=== PATIENT | male | born 1980 | race Caucasian/White ===

== ENCOUNTER 2022-12-09 15:29 | Outpatient (CLI) | payer OTHER, SELFPAY ==
[2022-12-09 19:08] LABS: Alanine Aminotransferase 46 U/L (6-50); Albumin Level 4.6 g/dL (3.5-5.1); Alkaline Phosphatase 59 U/L (38-126); Anion Gap 6 mmol/L (8-16); Aspartate Amino Transferase 47 U/L (17-59); Bilirubin,Total 0.7 mg/dL (0.2-1.3); Blood Urea Nitrogen 19 mg/dL (9-20); Calcium 8.7 mg/dL (8.4-10.2); Carbon Dioxide 27 mmol/L (22-30); Chloride 103 mmol/L (98-107); Cholesterol 229 mg/dL (0-200); Estimated Glomerular Filt Rate > 60; Glucose 80 mg/dL (65-110); HDL Direct 41 mg/dL; Potassium 4.3 mmol/L (3.4-5.0); Sodium 136 mmol/L (137-145); Triglycerides 153 mg/dL (<150)
[2022-12-09 19:22] LABS: LDL Cholesterol Direct 163 mg/dL
[2022-12-09 19:38] LABS: Basophils Percent Auto 0.5 % (0.2-1.2); Eosinophils Percent Auto 0.7 % (0-4.4); Hematocrit 45.9 % (42.0-52.0); Hemoglobin 15.6 g/dL (14.0-18.0); Immature Granulocyte Absolute 0.01 K/mm3 (0.00-0.031); Immature Granulocyte Percent A 0.2 % (0-0.5); Lymphocytes Absolute Auto 2.04 K/mm3 (0.9-3.2); Lymphocytes Percent Auto 37.2 % (18.3-44.2); Mean Corpuscular Hemoglobin 28.7 pg (26-34); Mean Corpuscular Volume 84.4 fl (80-100); Mean Platelet Volume 10.3 fl (7.4-10.4); Monocytes Absolute Auto 0.6 K/mm3 (0.1-0.6); Monocytes Percent Auto 10.9 % (2.6-8.5); Neutrophils Absolute Auto 2.8 K/mm3 (1.3-6.7); Neutrophils Percent Auto 50.5 % (45.5-73.1); Platelet Count Result 245 k/mm3 (150-375); Red Blood Count 5.44 M/mm3 (4.6-6.20); White Blood Count 5.5 K/mm3 (4.5-10.0)
== END 2022-12-09 15:30 | disposition home or self-care (01) ==
LOC: ANHGOSHLAB 15:30
PROVIDERS: PCP Family Medicine; Visit Provider Nurse Practitioner Family
DX: Z00.00 Encounter for general adult medical examination without abnormal findings (principal); R42 Dizziness and giddiness; R44.8 Other symptoms and signs involving general sensations and perceptions; Z13.220 Encounter for screening for lipoid disorders
CPT/HCPCS: 36415; 80053; 80061; 85025

== ENCOUNTER 2022-12-24 13:30 | Outpatient (CLI) | payer OTHER, SELFPAY ==
--- NOTE | ~2022-12-24 | CT_ITS ---
EXAMINATION: CT sinus wo con DATE: 12/24/2022 13:42 INDICATION: Sinus pressure. Left ear pain. TECHNIQUE: Computed tomography (CT) of the paranasal sinuses was performed without intravenous contra st. Iterative reconstruction technique was employed. The dose-length product was 431.77 mGy-cm. COMPARISON: Sinuses CT 04/03/2007 FINDINGS: The frontal sinuses are hypoplastic. There is mild mucosal thickening in right frontal sinu s and right anterior ethmoid sinus. The sphenoid and maxillary sinuses are clear. There are Bunny ce lls bilaterally. The ostiomeatal units are patent. There is mild mucosal thickening in the right infu ndibulum. There is mild rightward deviation of anterior nasal septum. There is leftward deviation of posterior nasal septum with a left lateral spur. IMPRESSION: 1. Mild mucosal thickening in the paranasal sinuses. Reviewed, dictated and finalized at location A.
== END 2022-12-24 13:31 ==
PROVIDERS: PCP Nurse Practitioner Family; Visit Provider Nurse Practitioner Family
DX: R44.8 Other symptoms and signs involving general sensations and perceptions (principal)
CPT/HCPCS: 70486

== ENCOUNTER → 2023-05-18 08:20 | Outpatient (CLI) | payer OTHER, SELFPAY ==
--- NOTE | ~2023-05-18 | XR_ITS ---
EXAMINATION: XR elbow RT 2V DATE: 05/18/2023 08:37 INDICATION: Right posterior elbow pain TECHNIQUE: Anteroposterior and lateral views of the right elbow were obtained. COMPARISON: None. FINDINGS: Alignment is normal. No fracture or joint effusion. Joint spaces are normal. No erosions or enthesoph ytes. Soft tissues are unremarkable. IMPRESSION: 1. Negative right elbow radiographs. Reviewed, dictated and finalized at location A.
== END ==
PROVIDERS: PCP Family Medicine; Visit Provider Nurse Practitioner Family
DX: M25.521 Pain in right elbow (principal)
CPT/HCPCS: 73070

== ENCOUNTER 2024-01-27 09:31 | Outpatient (CLI) | payer OTHER, SELFPAY ==
[2024-01-27 19:27] LABS: Thyroid Stimulating Hormone 0.719 uIU/mL (0.465-4.680)
[2024-01-27 20:03] LABS: Folic Acid 12.2 ng/mL (2.76->20)
== END 2024-01-27 09:32 | disposition home or self-care (01) ==
LOC: ANHGOSHLAB 09:32
PROVIDERS: PCP Family Medicine; Visit Provider Student in an Organized Health Care Education/Training Program
DX: R41.89 Other symptoms and signs involving cognitive functions and awareness (principal)
CPT/HCPCS: 36415; 82607; 82746; 84443

== ENCOUNTER 2024-01-31 14:40 | Outpatient (CLI) | payer OTHER, SELFPAY ==
--- NOTE | ~2024-01-31 | CT_ITS ---
EXAMINATION: CTA brain carotid DATE: 01/31/2024 15:50 INDICATION: Lightheadedness. Dizziness. Headache. Neck pain. TECHNIQUE: Computed tomographic angiography (CTA) of the head was performed without and with 100 mL O [id number] intravenous contrast. CTA of the neck was performed with intravenous contrast. Automated exposure control and iterative reconstruction technique were employed. The dose-length product was 1 738.20 mGy-cm. Maximum intensity projection and volume rendered 3D-reconstructions were created by georgi gallo technologist on a separate workstation. COMPARISON: Brain MRI 01/31/2024 FINDINGS: HEAD CTA: There is no intracranial hemorrhage, acute infarction, or abnormal intracranial mass lesion . The ventricles are normal in size. The orbits are normal. The paranasal sinuses are clear. The mast oid air cells are normal. The vertebral arteries are codominant. There is no significant stenosis of basilar artery or the posterior cerebral arteries. The posterior communicating arteries are normal. T here is no significant stenosis of the intracranial internal carotid arteries or anterior or middle c erebral arteries. Anterior communicating artery is normal. There is no aneurysm. NECK CTA: There are no pathologically enlarged lymph nodes. There is no significant stenosis of the v ertebral arteries. There is no visible plaque in the proximal internal carotid arteries. There is 0% stenosis of the proximal right internal carotid artery relative to normal distal artery lumen diamete r (NASCET criteria). There is 0% stenosis of the proximal left internal carotid artery relative to no rmal distal artery lumen diameter. There is mild thoracic spondylosis. IMPRESSION: 1. Normal brain. No aneurysm or significant intracranial arterial stenosis. 2. 0% stenosis of the proximal internal carotid arteries relative to normal distal artery lumen diame ters (NASCET criteria). Reviewed, dictated and finalized at location E. IMPRESSION: 1. Normal brain. No aneurysm or significant intracranial arterial stenosis. 2. 0% stenosis of the proximal internal carotid arteries relative to normal dis ashley artery lumen diameters (NASCET criteria).
--- NOTE | ~2024-01-31 | MR_ITS ---
EXAMINATION: MR brain/brain stem wo con DATE: 01/31/2024 15:15 INDICATION: Headache. Lightheadedness. Dizziness. TECHNIQUE: Magnetic resonance imaging (MRI) of the brain and brainstem was performed without intraven ous contrast. COMPARISON: None. FINDINGS: There is no pneumonia, pleural effusion, or pneumothorax. There are two foci of nonspecific increased T2-weighted signal intensity in the cerebral white matter, which is within normal limits f or the patient's age. The ventricles are normal in size. The paranasal sinuses are clear. The orbits are normal. The mastoid air cells are normal. IMPRESSION: 1. Normal brain. Reviewed, dictated and finalized at location E. IMPRESSION: 1. Normal brain.
== END 2024-01-31 14:41 ==
LOC: MICIMG 14:41
PROVIDERS: PCP Student in an Organized Health Care Education/Training Program; Visit Provider Student in an Organized Health Care Education/Training Program
DX: R42 Dizziness and giddiness (principal); R51.9 Headache, unspecified
CPT/HCPCS: 70496; 70498; 70551; Q9967

== ENCOUNTER 2024-06-29 15:30 | Outpatient (CLI) | payer OTHER, SELFPAY ==
--- NOTE | ~2024-06-29 | MR_ITS ---
EXAMINATION: MR cervical spine wo con DATE: 06/29/2024 16:01 INDICATION: Neck pain. TECHNIQUE: Magnetic resonance imaging (MRI) of the cervical spine was performed without intravenous c ontrast. COMPARISON: None FINDINGS: There is 6 degrees dextrocurvature of cervicothoracic spine. There is mild kyphosis of cerv ical spine. Vertebral body heights are normal. There is mildly decreased disc height at C5-C6. The sp inal cord signal intensity is normal. The following disc levels are specifically discussed: C2-C3: The disc does not extend beyond the endplate margin. There is no uncovertebral joint osteoarth ritis. There is mild right and moderate left facet joint osteoarthritis. There is no neural foraminal stenosis. There is no central canal stenosis. C3-C4: The disc does not extend beyond the endplate margin. There is no uncovertebral joint osteoarth ritis. There is mild right and moderate left facet joint osteoarthritis. There is no neural foraminal stenosis. There is no central canal stenosis. C4-C5: The disc does not extend beyond the endplate margin. There is no uncovertebral joint osteoarth ritis. There is mild right and moderate left facet joint osteoarthritis. There is no neural foraminal stenosis. There is no central canal stenosis. C5-C6: There is a right central extrusion. There is no uncovertebral joint osteoarthritis. There is m ild right facet joint osteoarthritis. There is no neural foraminal stenosis. There is mild central ca nal stenosis. C6-C7: There is a central extrusion. There is no uncovertebral joint osteoarthritis. There is mild ri ght facet joint osteoarthritis. There is no neural foraminal stenosis. There is mild central canal st enosis with ventral indentation of the spinal cord. C7-T1: There is a central extrusion. There is no uncovertebral joint osteoarthritis. There is moderat e right and mild left facet joint osteoarthritis. There is mild right neural foraminal stenosis. Ther e is mild central canal stenosis. IMPRESSION: 1. Mild cervical spondylosis. Reviewed, dictated and finalized at location A. S DEPARTMENT MANAGER
== END 2024-06-29 15:31 | disposition home or self-care (01) ==
PROVIDERS: PCP Family Medicine; Visit Provider Psychiatry & Neurology Neurology
DX: M47.892 Other spondylosis, cervical region (principal)
CPT/HCPCS: 72141